=== PATIENT | female | born 1975 | race Two or more races ===

== ENCOUNTER 2017-02-16 11:05 | Emergency (ER) | payer MEDICAID, OTHER ==
[~2017-02-16] VITALS: Ht 157.5 cm; Wt 87.1 kg
[2017-02-16 11:28] VITALS: BP 144/81
[2017-02-16] MEDS ORDERED: HYDROcodone-ACET 7.5/325MG TAB PO ONE (11:30)
== END 2017-02-16 11:41 | disposition home or self-care (01) ==
LOC: ER 11:05
DX: K04.7 Periapical abscess without sinus (principal); Z88.8 Allergy status to other drugs, medicaments and biological substances